=== PATIENT | male | born 1950 | race Caucasian/White ===

== ENCOUNTER 2017-10-20 13:45 | Emergency (ER) | payer OTHER, MEDICAID ==
[~2017-10-20] VITALS: Ht 170.2 cm; Wt 93.0 kg
[2017-10-20 13:45] VITALS: BP_SYST 144
[2017-10-20 14:19] LABS: BASOPHILS % (AUTO) 0.4 % (0.0-2.0); EOSINOPHILS % (AUTO) 0.3 % (0.0-4.0); HEMOGLOBIN 11.4 g/dL (14.0-18.0); LYMPHOCYTES % (AUTO) 22.7 % (20.5-51.5); MEAN CORPUSCULAR HEMOGLOBIN 27 pg (27-31); MEAN CORPUSCULAR HGB CONC 33 % (32-36); MEAN CORPUSCULAR VOLUME 80 fL (79.0-98.0); MONOCYTES # (AUTO) 0.6 K/uL (0.0-1.0); MONOCYTES % (AUTO) 6.6 % (1.7-9.3); NEUTROPHILS # (AUTO) 6.4 K/uL (1.8-7.7); PLATELET COUNT (AUTO) 568 K/uL (130-430); RED BLOOD CELL COUNT(AUTO) 4.24 MIL/uL (4.2-6.2); RED CELL DISTRIBUTION WIDTH 15.7 % (9.0-15.0)
[2017-10-20] MEDS ORDERED: LORazepam 1 MG TABLET PO ONE (14:30)
[2017-10-20 14:56] LABS: CALCIUM 8.9 mg/dL (8.4-11.0); CREATININE 1.15 mg/dL (0.55-1.30)
[2017-10-20 15:00] LABS: POTASSIUM 2.9 mmol/L (3.5-5.1)
[2017-10-20 15:04] LABS: TOTAL BILIRUBIN 0.6 mg/dL (0.0-1.0)
[2017-10-20 15:05] LABS: ALBUMIN 3.5 g/dL (3.4-4.8)
[2017-10-20] MEDS ORDERED: POTASSIUM CHLORIDE 20 MEQ/PKT PACKET PO ONE (15:15)
[2017-10-20 15:41] VITALS: BP_SYST 139
== END 2017-10-20 15:40 | disposition home or self-care (01) ==
LOC: SED 13:45
DX: E87.6 Hypokalemia (principal); E11.9 Type 2 diabetes mellitus without complications; I10 Essential (primary) hypertension; F43.10 Post-traumatic stress disorder, unspecified; F41.9 Anxiety disorder, unspecified
CPT/HCPCS: 36415; 71045; 71250-TC; 76700-TC; 80053; 82150-TC; 82550-TC; 83690-TC; 83880; 84484; 85025; 85610-TC; 85730-TC; 93005; 99285

== ENCOUNTER 2018-06-09 11:33 | Emergency (ER) | payer OTHER, MEDICAID ==
[~2018-06-09] VITALS: Ht 170.2 cm; Wt 93.0 kg
[2018-06-09 11:59] VITALS: BP_SYST 164
[2018-06-09] MEDS ORDERED: LORazepam 2 MG/ML VIAL (FOR ER USE) IM ONE (12:45)
[2018-06-09 13:03] VITALS: BP_SYST 153
== END 2018-06-09 13:03 | disposition home or self-care (01) ==
LOC: SED 11:33
DX: F41.9 Anxiety disorder, unspecified (principal); E11.9 Type 2 diabetes mellitus without complications; I10 Essential (primary) hypertension; F43.10 Post-traumatic stress disorder, unspecified
CPT/HCPCS: 96372; 99283; J2060

== ENCOUNTER 2018-07-27 09:54 | Emergency (ER) | payer OTHER, MEDICAID ==
[~2018-07-27] VITALS: Ht 172.7 cm; Wt 85.3 kg
[2018-07-27 10:15] VITALS: BP_SYST 200
[2018-07-27] MEDS ORDERED: LORazepam 1 MG TABLET PO ONE (10:15)
[2018-07-27] MEDS ORDERED: KETOROLAC TROMETHAMINE 60 MG/2 ML VIAL IM ONE (10:15)
[2018-07-27 10:50] VITALS: BP_SYST 155
== END 2018-07-27 10:50 | disposition home or self-care (01) ==
LOC: SED 09:54
DX: F41.9 Anxiety disorder, unspecified (principal); E11.9 Type 2 diabetes mellitus without complications; I10 Essential (primary) hypertension; F43.10 Post-traumatic stress disorder, unspecified
CPT/HCPCS: 96372; 99283; J1885

== ENCOUNTER 2018-08-28 15:30 | Emergency (ER) | payer OTHER, MEDICAID ==
[~2018-08-28] VITALS: Ht 170.2 cm; Wt 95.3 kg
[2018-08-28] MEDS ORDERED: NACL 0.9% 1,000 ML IV ONE (15:36)
[2018-08-28 15:40] VITALS: BP_SYST 196
[2018-08-28] MEDS ORDERED: KETOROLAC TROMETHAMINE 30 MG VIAL IVP ONE (15:45)
[2018-08-28] MEDS ORDERED: LORazepam 2 MG/ML VIAL (FOR ER USE) IVP ONE (16:00)
[2018-08-28 16:09] LABS: BILIRUBIN,URINE NEGATIVE (NEGATIVE); BLOOD, URINE NEGATIVE (NEGATIVE); CLARITY/URINE CLEAR (CLEAR); COLOR,URINE YELLOW (YELLOW); GLUCOSE,URINE TRACE (NEGATIVE); KETONES,URINE NEGATIVE (NEGATIVE); LEUKOCYTE ESTERASE ,URINE NEGATIVE (NEGATIVE); NITRITE, URINE NEGATIVE (NEGATIVE); PROTEIN URINE NEGATIVE (NEGATIVE); UROBILINOGEN,URINE 0.2 (0.2-1.0)
[2018-08-28 16:10] LABS: RED BLOOD CELL COUNT(AUTO) 4.19 MIL/uL (4.2-6.2); WHITE BLOOD COUNT (AUTO) 8.1 K/uL (4.8-10.8)
[2018-08-28 16:11] LABS: HEMATOCRIT 34.3 % (36-54); HEMOGLOBIN 11.2 g/dL (14.0-18.0); MEAN CORPUSCULAR HEMOGLOBIN 27 pg (27-31); MEAN CORPUSCULAR HGB CONC 33 % (32-36); MEAN CORPUSCULAR VOLUME 82 fL (79.0-98.0); PLATELET COUNT (AUTO) 308 K/uL (130-430); RED CELL DISTRIBUTION WIDTH 16.2 % (9.0-15.0)
[2018-08-28 16:12] LABS: BASOPHILS # (AUTO) 0.1 K/uL (0.0-0.2); BASOPHILS % (AUTO) 0.7 % (0.0-2.0); CALCIUM 7.9 mg/dL (8.4-11.0); CREATININE 1.42 mg/dL (0.55-1.30); EOSINOPHILS # (AUTO) 0.1 K/uL (0.0-0.4); EOSINOPHILS % (AUTO) 0.9 % (0.0-4.0); LYMPHOCYTES # (AUTO) 2.3 K/uL (1.0-5.5); LYMPHOCYTES % (AUTO) 28.9 % (20.5-51.5); MONOCYTES # (AUTO) 0.8 K/uL (0.0-1.0); MONOCYTES % (AUTO) 10.4 % (1.7-9.3); NEUTROPHILS # (AUTO) 4.8 K/uL (1.8-7.7); NEUTROPHILS % (AUTO) 59.1 % (40.0-70.0); POTASSIUM 3.5 mmol/L (3.5-5.1)
[2018-08-28 16:17] LABS: ALBUMIN 3.3 g/dL (3.4-4.8); TOTAL BILIRUBIN 0.2 mg/dL (0.0-1.0)
[2018-08-28 16:29] LABS: BARBITURATE, URINE NEGATIVE (NEG <=200); BENZODIAZEPINE, URINE POSITIVE (NEG <=150); METHAMPHETAMINES SCREEN,URINE NEGATIVE (NEG <=500); OPIATE, URINE POSITIVE (NEG <=100); URINE AMPHETAMINE NEGATIVE (NEG <=500); URINE METHADONE NEGATIVE (NEG <=200)
[2018-08-28 16:30] LABS: CANNABINOID, URINE NEGATIVE (NEG <=50); COCAINE, URINE NEGATIVE (NEG <=150); PHENCYCLIDINE SCREEN,URINE NEGATIVE (NEG <=25); UR TRICYCLIC ANTIDEPRESSANTS NEGATIVE (NEG <=300); URINE OXYCODONE SCREEN NEGATIVE (NEG <=100); URINE PROPOXYPHENE SCREEN NEGATIVE (NEG <=300)
[2018-08-28 16:39] VITALS: BP_SYST 144
== END 2018-08-28 16:38 | disposition home or self-care (01) ==
LOC: SED 15:30
DX: G89.29 Other chronic pain (principal); M54.5 Low back pain; F41.9 Anxiety disorder, unspecified; Z76.5 Malingerer [conscious simulation]; F43.10 Post-traumatic stress disorder, unspecified; E11.9 Type 2 diabetes mellitus without complications; I10 Essential (primary) hypertension
CPT/HCPCS: 36415; 71045; 80053; 80307; 81003; 82150; 82550; 83690; 84484; 85025; 93005; 96374; 96375; 99284; J1885; J2060; J7030

== ENCOUNTER 2018-08-29 10:34 | Emergency (ER) | payer OTHER, MEDICAID ==
[~2018-08-29] VITALS: Ht 170.2 cm; Wt 95.3 kg
[2018-08-29 10:42] VITALS: BP_SYST 183
[2018-08-29] MEDS ORDERED: KETOROLAC TROMETHAMINE 60 MG/2 ML VIAL IM ONE (10:45)
[2018-08-29] MEDS ORDERED: LORazepam 2 MG/ML VIAL (FOR ER USE) IM ONE (10:45)
[2018-08-29 10:57] VITALS: BP_SYST 183
== END 2018-08-29 11:01 | disposition home or self-care (01) ==
LOC: SED 10:34
DX: F41.9 Anxiety disorder, unspecified (principal); F43.10 Post-traumatic stress disorder, unspecified; E11.9 Type 2 diabetes mellitus without complications; I10 Essential (primary) hypertension; Z76.5 Malingerer [conscious simulation]
CPT/HCPCS: 96372; 99284; J1885; J2060

== ENCOUNTER 2018-09-27 11:04 | Emergency (ER) | payer OTHER, MEDICAID ==
[~2018-09-27] VITALS: Ht 170.2 cm; Wt 93.0 kg
[2018-09-27 11:31] VITALS: BP_SYST 181
[2018-09-27] MEDS ORDERED: KETOROLAC TROMETHAMINE 60 MG/2 ML VIAL IM ONE (15:15)
[2018-09-27] MEDS ORDERED: LORazepam 1 MG TABLET PO ONE (15:15)
[2018-09-27 15:23] LABS: BILIRUBIN,URINE NEGATIVE (NEGATIVE); BLOOD, URINE NEGATIVE (NEGATIVE); CLARITY/URINE CLEAR (CLEAR); COLOR,URINE YELLOW (YELLOW); GLUCOSE,URINE TRACE (NEGATIVE); KETONES,URINE NEGATIVE (NEGATIVE); LEUKOCYTE ESTERASE ,URINE NEGATIVE (NEGATIVE); NITRITE, URINE NEGATIVE (NEGATIVE); PH,URINE 6.5 (5.0-8.0); PROTEIN URINE TRACE (NEGATIVE); UROBILINOGEN,URINE 0.2 (0.2-1.0)
[2018-09-27 15:30] LABS: BACTERIA,URINE RARE /HPF (None Seen); RBC,URINE 0-3 /HPF (0-3); WBC,URINE 0-3 /HPF (0-3)
[2018-09-27 15:33] VITALS: BP_SYST 156
[2018-09-27 15:34] LABS: BARBITURATE, URINE NEGATIVE (NEG <=200); BENZODIAZEPINE, URINE POSITIVE (NEG <=150); CANNABINOID, URINE NEGATIVE (NEG <=50); COCAINE, URINE NEGATIVE (NEG <=150); METHAMPHETAMINES SCREEN,URINE NEGATIVE (NEG <=500); OPIATE, URINE POSITIVE (NEG <=100); PHENCYCLIDINE SCREEN,URINE NEGATIVE (NEG <=25); UR TRICYCLIC ANTIDEPRESSANTS NEGATIVE (NEG <=300); URINE AMPHETAMINE NEGATIVE (NEG <=500); URINE METHADONE NEGATIVE (NEG <=200); URINE OXYCODONE SCREEN NEGATIVE (NEG <=100); URINE PROPOXYPHENE SCREEN NEGATIVE (NEG <=300)
== END 2018-09-27 15:33 | disposition home or self-care (01) ==
LOC: SED 11:04
DX: F41.9 Anxiety disorder, unspecified (principal); G89.29 Other chronic pain; M54.9 Dorsalgia, unspecified; E11.9 Type 2 diabetes mellitus without complications; I10 Essential (primary) hypertension; F43.10 Post-traumatic stress disorder, unspecified
CPT/HCPCS: 80307; 81000; 96372; 99283; J1885

== ENCOUNTER 2020-01-07 12:47 | Emergency (ER) | payer OTHER, MEDICAID ==
[~2020-01-07] VITALS: Ht 170.2 cm; Wt 90.7 kg
[2020-01-07 12:52] VITALS: BP_SYST 161
[2020-01-07] MEDS ORDERED: LORazepam 2 MG/ML VIAL IM ONE (14:30)
[2020-01-07] MEDS ORDERED: KETOROLAC TROMETHAMINE 60 MG/2 ML VIAL IM ONE (14:30)
[2020-01-07 15:26] VITALS: BP_SYST 147
== END 2020-01-07 15:26 | disposition home or self-care (01) ==
LOC: SED 12:47
DX: F41.9 Anxiety disorder, unspecified (principal); I10 Essential (primary) hypertension; E11.9 Type 2 diabetes mellitus without complications
CPT/HCPCS: 93005; 96372; 99284; J1885; J2060

== ENCOUNTER 2020-01-21 09:53 | Emergency (ER) | payer OTHER, MEDICAID ==
[~2020-01-21] VITALS: Ht 170.2 cm; Wt 90.7 kg
[2020-01-21 10:00] VITALS: BP_SYST 149
[2020-01-21] MEDS ORDERED: ONDANSETRON HCL 4 MG/2 ML VIAL IVP ONE (10:30)
[2020-01-21] MEDS ORDERED: PIPERACILLIN/TAZO 3.38 GM in D5W 50 ML IV ONE (10:30)
[2020-01-21] MEDS ORDERED: MORPHINE 2 MG/ML INJ. SYRINGE IVP ONE (10:30)
[2020-01-21] MEDS ORDERED: VANCOMYCIN HCL 1,000 MG in D5W 250 ML IV ONE (10:30)
[2020-01-21 11:41] LABS: BASOPHILS % (AUTO) 0.5 % (0.0-2.0); EOSINOPHILS # (AUTO) 0.1 K/uL (0.0-0.4); EOSINOPHILS % (AUTO) 0.9 % (0.0-4.0); HEMATOCRIT 36.8 % (36-54); HEMOGLOBIN 12.2 g/dL (14.0-18.0); LYMPHOCYTES # (AUTO) 1.3 K/uL (1.0-5.5); LYMPHOCYTES % (AUTO) 20.8 % (20.5-51.5); MEAN CORPUSCULAR HEMOGLOBIN 28 pg (27-31); MEAN CORPUSCULAR HGB CONC 33 % (32-36); MEAN CORPUSCULAR VOLUME 85 fL (79.0-98.0); MONOCYTES # (AUTO) 0.6 K/uL (0.0-1.0); MONOCYTES % (AUTO) 9.1 % (1.7-9.3); NEUTROPHILS # (AUTO) 4.4 K/uL (1.8-7.7); NEUTROPHILS % (AUTO) 68.7 % (40.0-70.0); PLATELET COUNT (AUTO) 311 K/uL (130-430); RED BLOOD CELL COUNT(AUTO) 4.34 MIL/uL (4.2-6.2); RED CELL DISTRIBUTION WIDTH 15.4 % (9.0-15.0); WHITE BLOOD COUNT (AUTO) 6.4 K/uL (4.8-10.8)
[2020-01-21] MEDS ORDERED: PIPERACILLIN/TAZOBACTAM 3.375 GM/VIAL (ZOSYN) IV ONE (11:48)
[2020-01-21 11:59] LABS: CALCIUM 8.4 mg/dL (8.4-11.0); CREATININE 0.97 mg/dL (0.55-1.30); PROTHROMBIN TIME 9.9 SECS (9.5-12.5)
[2020-01-21 12:04] LABS: POTASSIUM 2.9 mmol/L (3.5-5.1)
[2020-01-21] MEDS ORDERED: POTASSIUM CHLORIDE 20 MEQ TAB.PRT.SR PO ONE (12:15)
[2020-01-21 12:19] LABS: ALBUMIN 3.4 g/dL (3.4-4.8); TOTAL BILIRUBIN 0.4 mg/dL (0.0-1.0)
[2020-01-21 13:49] VITALS: BP_SYST 168
[2020-01-21 14:53] LABS: BILIRUBIN,URINE NEGATIVE (NEGATIVE); BLOOD, URINE NEGATIVE (NEGATIVE); CLARITY/URINE CLEAR (CLEAR); COLOR,URINE YELLOW (YELLOW); GLUCOSE,URINE NEGATIVE (NEGATIVE); KETONES,URINE NEGATIVE (NEGATIVE); LEUKOCYTE ESTERASE ,URINE NEGATIVE (NEGATIVE); NITRITE, URINE NEGATIVE (NEGATIVE); PROTEIN URINE NEGATIVE (NEGATIVE); UROBILINOGEN,URINE 0.2 (0.2-1.0)
== END 2020-01-21 13:49 | disposition home or self-care (01) ==
LOC: SED 09:53
DX: K57.92 Diverticulitis of intestine, part unspecified, without perforation or abscess without bleeding (principal); R11.10 Vomiting, unspecified; I10 Essential (primary) hypertension; E11.9 Type 2 diabetes mellitus without complications
CPT/HCPCS: 36415; 74176; 80053; 81003; 83605; 83690; 85025; 85610; 85730; 87040; 96365; 96375; 99284; J2270; J2405; J2543

== ENCOUNTER 2020-03-15 14:07 | Emergency (ER) | payer OTHER, MEDICAID ==
[~2020-03-15] VITALS: Ht 167.6 cm; Wt 77.1 kg
[2020-03-15 14:07] VITALS: BP_SYST 150
[2020-03-15] MEDS ORDERED: KETOROLAC TROMETHAMINE 30 MG VIAL IM ONE (14:15)
[2020-03-15 14:55] VITALS: BP_SYST 150
== END 2020-03-15 14:56 | disposition home or self-care (01) ==
LOC: SED 14:07
DX: M54.5 Low back pain (principal); R10.9 Unspecified abdominal pain; I10 Essential (primary) hypertension; E11.9 Type 2 diabetes mellitus without complications
CPT/HCPCS: 96372; 99283; J1885

== ENCOUNTER 2020-03-18 14:51 | Emergency (ER) | payer OTHER, MEDICAID ==
[~2020-03-18] VITALS: Ht 170.2 cm; Wt 90.7 kg
[2020-03-18 15:05] VITALS: BP_SYST 151
--- NOTE | 2020-03-18 15:09 | NUR ---
AMBULATED TO BED7
--- NOTE | 2020-03-18 15:15 | NUR ---
JONG Long at bedside examining patient.
[2020-03-18] MEDS ORDERED: LORazepam 1 MG TABLET PO ONE (15:30)
[2020-03-18] MEDS ORDERED: KETOROLAC TROMETHAMINE 30 MG VIAL IM ONE (15:30)
--- NOTE | 2020-03-18 15:30 | NUR ---
CALM, ALERT, RESP UNLABORED, DENIES CP/SOB. SKIN WARM AND DRY. STEADY GAIT DENIES RECENT INJURY. C/O CHRONIC BACK PAIN RESULTING FROM OLD INJURY 10 YRS AGO
--- NOTE | 2020-03-18 15:51 | NUR ---
Patient given written and verbal discharge instructions and verbalizes understanding. ER MD discussed with patient the results and treatment provided. Patient in stable condition. ID arm band removed.Patient educated on pain management and to follow up with PMD. Pain Scale 4/10. Opportunity for questions provided and answered. Medication side effect fact sheet provided.
[2020-03-18 16:00] VITALS: BP_SYST 147
== END 2020-03-18 16:00 | disposition home or self-care (01) ==
LOC: SED 14:51
DX: G89.29 Other chronic pain (principal); M54.5 Low back pain; F41.9 Anxiety disorder, unspecified; I10 Essential (primary) hypertension; E11.9 Type 2 diabetes mellitus without complications; Z76.5 Malingerer [conscious simulation]
CPT/HCPCS: 96372; 99283; J1885

== ENCOUNTER 2020-05-08 10:31 | Emergency (ER) | payer OTHER, MEDICAID ==
[~2020-05-08] VITALS: Ht 170.2 cm; Wt 108.9 kg
--- NOTE | 2020-05-08 10:50 | NUR ---
Patient to ER bed 05 to gown for evaluation. Side rails up.
--- NOTE | 2020-05-08 10:52 | NUR ---
Patient arrived in the ED c/o ongoing back and neck pain. Denied any chest pain or shortness of breath. Denied any fevers, chills, nausea or vomiting. Patient is alert and oriented x2, respirations even and unlabored, mumbling his words, can barely keep his eyes open, and ambulating with a walker. VSS, pain level 10/10 - Taking [place] and Morphine for it. Informed of the approximate wait time. Instructed to notify ED staff for any changes in condition or worsening of symptoms while waiting to be seen by an ED provider. Patient verbalized understanding.
[2020-05-08 10:56] VITALS: BP_SYST 143
--- NOTE | 2020-05-08 12:06 | NUR ---
ER at bedside examining patient.
[2020-05-08] MEDS ORDERED: KETOROLAC TROMETHAMINE 15 MG VIAL IM ONE (12:15)
[2020-05-08 12:35] VITALS: BP_SYST 143
--- NOTE | 2020-05-08 12:36 | NUR ---
Patient given written and verbal discharge instructions and verbalizes understanding. ER MD discussed with patient the results and treatment provided. Patient in stable condition. ID arm band removed. No Rx given. Patient educated on pain management and to follow up with PMD. Pain Scale 0/10. Opportunity for questions provided and answered. Medication side effect fact sheet provided.
== END 2020-05-08 12:36 | disposition home or self-care (01) ==
LOC: SED 10:31
DX: G89.29 Other chronic pain (principal); M54.5 Low back pain; I10 Essential (primary) hypertension; F41.9 Anxiety disorder, unspecified; E11.9 Type 2 diabetes mellitus without complications
CPT/HCPCS: 96372; 99283; J1885

== ENCOUNTER 2020-05-13 10:19 | Emergency (ER) | payer OTHER, MEDICAID ==
[~2020-05-13] VITALS: Ht 170.2 cm; Wt 90.7 kg
[2020-05-13 10:25] VITALS: BP_SYST 163
--- NOTE | 2020-05-13 10:28 | NUR ---
AMBULATED TO BED 7
--- NOTE | 2020-05-13 10:34 | NUR ---
pt to room 8 and placed in [facility]. Pt is alert and oriented. C/O lower left abdominal pain.
--- NOTE | 2020-05-13 10:40 | NUR ---
ER Dr. Griffin at bedside examining patient.
[2020-05-13] MEDS ORDERED: NACL 0.9% 1,000 ML IV ONE (10:45)
[2020-05-13] MEDS ORDERED: KETOROLAC TROMETHAMINE 30 MG VIAL IVP ONE (10:45)
[2020-05-13 11:01] LABS: BASOPHILS # (AUTO) 0.1 K/uL (0.0-0.2); BASOPHILS % (AUTO) 0.8 % (0.0-2.0); EOSINOPHILS # (AUTO) 0.1 K/uL (0.0-0.4); EOSINOPHILS % (AUTO) 1.3 % (0.0-4.0); HEMATOCRIT 34.8 % (36-54); HEMOGLOBIN 11.5 g/dL (14.0-18.0); LYMPHOCYTES # (AUTO) 1.8 K/uL (1.0-5.5); LYMPHOCYTES % (AUTO) 23.1 % (20.5-51.5); MEAN CORPUSCULAR HEMOGLOBIN 28 pg (27-31); MEAN CORPUSCULAR HGB CONC 33 % (32-36); MEAN CORPUSCULAR VOLUME 84 fL (79.0-98.0); MONOCYTES # (AUTO) 0.5 K/uL (0.0-1.0); MONOCYTES % (AUTO) 7.1 % (1.7-9.3); NEUTROPHILS # (AUTO) 5.2 K/uL (1.8-7.7); NEUTROPHILS % (AUTO) 67.7 % (40.0-70.0); PLATELET COUNT (AUTO) 264 K/uL (130-430); RED BLOOD CELL COUNT(AUTO) 4.16 MIL/uL (4.2-6.2); RED CELL DISTRIBUTION WIDTH 15.5 % (9.0-15.0); WHITE BLOOD COUNT (AUTO) 7.6 K/uL (4.8-10.8)
[2020-05-13 11:21] LABS: CALCIUM 7.6 mg/dL (8.4-11.0); CREATININE 0.85 mg/dL (0.55-1.30); POTASSIUM 3.7 mmol/L (3.5-5.1)
[2020-05-13 11:33] LABS: ALBUMIN 3.2 g/dL (3.4-4.8); TOTAL BILIRUBIN 0.2 mg/dL (0.0-1.0)
[2020-05-13] MEDS ORDERED: MORPHINE 4 MG/ML INJ. SYRINGE IVP ONE (11:45)
[2020-05-13 11:53] LABS: BILIRUBIN,URINE NEGATIVE (NEGATIVE); BLOOD, URINE NEGATIVE (NEGATIVE); CLARITY/URINE CLEAR (CLEAR); COLOR,URINE YELLOW (YELLOW); GLUCOSE,URINE 2+ (NEGATIVE); KETONES,URINE NEGATIVE (NEGATIVE); LEUKOCYTE ESTERASE ,URINE NEGATIVE (NEGATIVE); NITRITE, URINE NEGATIVE (NEGATIVE); PROTEIN URINE NEGATIVE (NEGATIVE); UROBILINOGEN,URINE 0.2 (0.2-1.0)
[2020-05-13 12:57] VITALS: BP_SYST 132
--- NOTE | 2020-05-13 13:01 | NUR ---
Pt refused to keep davis catheter with leg bag stay in. Demanded that it be removed. Pt is alert and oriented.
--- NOTE | 2020-05-13 13:02 | NUR ---
Patient given written and verbal discharge instructions and verbalizes understanding. ER MD discussed with patient the results and treatment provided. Patient in stable condition. ID arm band removed. IV catheter removed intact and dressing applied, no active bleeding. Rx of naproxyn given. Patient educated on pain management and to follow up with PMD. Pain Scale 3/10. Opportunity for questions provided and answered. Medication side effect fact sheet provided.
== END 2020-05-13 12:57 | disposition home or self-care (01) ==
LOC: SED 10:19
DX: N39.0 Urinary tract infection, site not specified (principal); R10.32 Left lower quadrant pain; I10 Essential (primary) hypertension; E11.9 Type 2 diabetes mellitus without complications; F41.9 Anxiety disorder, unspecified
CPT/HCPCS: 36415; 74176; 76376; 80053; 81003; 83690; 85025; 96361; 96374; 96375; 99284; J1885; J2270; J7030

== ENCOUNTER 2020-06-09 11:17 | Emergency (ER) | payer OTHER, MEDICAID ==
[~2020-06-09] VITALS: Ht 170.2 cm; Wt 90.7 kg
--- NOTE | 2020-06-09 11:30 | NUR ---
Note undone in EDM - 06/09/20 at 1320 by [email or web address] Pt walked in to ER with c/o abdominal pain 04/07. Pt is well known to ER. V/S stable, pt is afebrile. No distress noted. Placed in waiting room,
[2020-06-09 11:45] VITALS: BP_SYST 150
--- NOTE | 2020-06-09 11:48 | NUR ---
SENT TO [facility]
[2020-06-09] MEDS ORDERED: IBUPROFEN 800 MG TABLET PO ONE (12:15)
--- NOTE | 2020-06-09 12:30 | NUR ---
Pt walked in to ER with c/o abdominal pain 04/07. Pt is well known to ER. V/S stable, pt is afebrile. No distress noted. Placed in waiting room,
--- NOTE | 2020-06-09 12:45 | NUR ---
Dr. Engel assessing patient in triage room
--- NOTE | 2020-06-09 13:10 | NUR ---
Patient given written and verbal discharge instructions and verbalizes understanding. ER MD discussed with patient the results and treatment provided. Patient in stable condition. ID arm band removed. No prescriptions given. Patient educated on pain management and to follow up with PMD. Pain Scale 0. Opportunity for questions provided and answered. Medication side effect fact sheet provided.
[2020-06-09 13:21] VITALS: BP_SYST 150
== END 2020-06-09 13:10 | disposition home or self-care (01) ==
LOC: SED 11:17
DX: M54.5 Low back pain (principal); I10 Essential (primary) hypertension; E11.9 Type 2 diabetes mellitus without complications; F41.9 Anxiety disorder, unspecified
CPT/HCPCS: 93005; 99281